=== PATIENT | female | born 1990 | race Caucasian/White ===

== ENCOUNTER → 2021-04-21 | Outpatient (CLI) | payer OTHER ==
[2021-04-21 10:39] LABS: RBC (AUTOMATED) 2700 10^6 (0); WBC (AUTOMATED 17 10^3 (0-5)
[2021-04-21 10:40] LABS: RBC (AUTOMATED) 1300 10^6 (0); WBC (AUTOMATED 8 10^3 (0-5)
[2021-04-21 10:52] LABS: GLUCOSE,CSF 63 mg/dL (50-80); TOTAL PROTEIN,CSF 37 mg/dL (20-45)
[2021-04-22 17:11] LABS: CSF IGG INDEX 0.8 (0.0-0.7); IMMUNOGLOBULIN G, QN, SERUM 850 mg/dL (586-1602)
[2021-04-24 17:14] LABS: MYELIN BASIC PROTEIN, CSF 1.8 ng/mL (0.0-2.9)
== END ==
LOC: RAD 07:43
PROVIDERS: Psychiatry & Neurology Neurology
DX: G44.89 Other headache syndrome (principal)
CPT/HCPCS: 70450; 82040; 82784; 82945; 83873; 83916; 84157; 89051